=== PATIENT | male | born 2000 | race African-American/Black ===

== ENCOUNTER 2020-03-02 02:12 | Emergency (ER) | payer OTHER, SELFPAY ==
[2020-03-02] VITALS (8 sets, daily range): BP systolic 106–146; BP diastolic 51–92; PULSE 60–77; RESP 15–18; TEMP 36.4–37.1; O2SAT 98–100; BMI 26.9
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
[2020-03-02 03:22] LABS: Amphetamine Screen Urine Not Detected (Not Detect); Barbiturates, Urine Not Detected (Not Detect); Benzodiazepines Screen Urine Not Detected (Not Detect); Cannabinoid Screen Urine POSITIVE (Not Detect); Cocaine Screen Urine Not Detected (Not Detect); Opiate Screen Urine Not Detected (Not Detect); Phencyclidine Screen Urine Not Detected (Not Detect)
[2020-03-02 03:44] LABS: Basophils Absolute Auto 0.1 X10*3/uL (0.0-0.2); Basophils Percent Auto 0.6 % (0-2); Eosinophils Absolute Auto 0.1 X10*3/uL (0.0-0.4); Eosinophils Percent Auto 0.8 % (0-4); Hematocrit 42.9 % (42-52); Hemoglobin 13.6 g/dl (14.0-18.0); Imm Gran Abs Auto 0.05 X10*3/uL (0.00-0.03); Imm Gran Pct Auto 0.5 % (0.0-0.4); Lymphocytes Absolute Auto 3.5 X10*3/uL (1.2-4.9); Lymphocytes Percent Auto 33.9 % (20-40); MANUAL DIFF FLAG NO; Mean Corpuscular HGB Conc 31.7 g/dl (31.0-36.0); Mean Corpuscular Hemoglobin 22.6 pg (27.0-33.0); Mean Corpuscular Volume 71.4 fL (80-98); Mean Platelet Volume 11.1 fL (9.4-12.4); Monocytes Absolute Auto 0.6 X10*3/uL (0.1-1.2); Monocytes Percent Auto 5.6 % (2-11); Neutrophils Absolute Auto 6.1 X10*3/uL (2.0-8.3); Neutrophils Percent Auto 58.6 % (45-73); Platelet Count 179 X10*3/uL (160-400); Red Blood Count 6.01 X10*6/uL (4.60-5.80); Red Cell Distribution Width 14.7 % (11.0-16.0); White Blood Count 10.3 X10*3/uL (4.8-10.8)
[2020-03-02 03:50] LABS: INTERNATIONAL NORM RATIO 1.1 (0.9-1.1); Prothrombin Time 12.6 SEC (10.8-13.0)
[2020-03-02 03:52] LABS: Partial Thromboplastin Time 34.2 SEC (24.1-38.0)
[2020-03-02 04:14] LABS: Acetaminophen LAB < 1 mcg/mL (<30); Alanine Aminotransferase 13 U/L (0-40); Albumin Level 4.1 g/dL (3.5-5.0); Alkaline Phosphatase 67 U/L (39-117); Anion Gap 15 (12-20); Aspartate Amino Transferase 14 U/L (5-37); Bilirubin Direct 0.2 mg/dL (0.0-0.5); Bilirubin Total 0.3 mg/dL (0.0-1.0); Blood Urea Nitrogen 14 mg/dL (9-16); Calcium 9.3 mg/dL (8.4-10.2); Carbon Dioxide 24 mmol/L (22-29); Chloride 102 mmol/L (96-108); Creatinine Clr Calc Pharmacy 131.1; Estimated Glomerular Filt Rate > 60; Glucose Random 87 mg/dL (60-115); Lipase 13 U/L (8-78); Potassium 3.8 mmol/l (3.3-5.1); Salicylate < 5.0 mg/dL (15-30); Sodium 137 mmol/L (135-145)
--- NOTE | 2020-03-02 06:02 | PC.NURSE ---
Late entry: Poison control recommendation for activated charcoal if medication was ingested less than an hour ago, repeat tylenol and ASA levels at 4 hr reynold, BMP, MICHAUD, ETOH, and CBC.
--- NOTE | 2020-03-02 07:29 | PC.NURSE ---
PT A/O X 3 NO SOB/CHEMO NOTED SKIN PINK WARM DRY SPEAKS IN FULL SENTENCES. EATING BREAKFAST. AMB (I) GAIT STEADY TO BR AND BTB.
[2020-03-02 09:34] LABS: Acetaminophen LAB < 1 mcg/mL (<30)
--- NOTE | 2020-03-02 13:07 | PC.NURSE ---
this rn called [facility] at [phone]. this rn spoke with renan ([facility]). renan states that paperwork was received but they do not have anyone (staff) available at this time to see the pt. shell (mlp) and alex (rn) are aware. this rn per shell (mlp) reached out to claudia (care team) who will get back to us on their availability to see the pt today carol.
--- NOTE | 2020-03-02 13:11 | PC.NURSE ---
called [facility], told this rn they are unsure when a clinician would arrive to see pt
--- NOTE | 2020-03-02 13:33 | PC.NURSE ---
care team at bedside for eval.
== END 2020-03-02 13:47 | disposition home or self-care (01) ==
PROVIDERS: Nurse Practitioner Family; Emergency Provider Emergency Medicine; PCP Pediatrics
DX: T39.311A Poisoning by propionic acid derivatives, accidental (unintentional), initial encounter (principal); T39.314A Poisoning by propionic acid derivatives, undetermined, initial encounter; R45.851 Suicidal ideations; Y92.009 Unspecified place in unspecified non-institutional (private) residence as the place of occurrence of the external cause
CPT/HCPCS: 36415; 80048; 80076; 80307; 83690; 85025; 85610; 85730; 99285; G0480

== ENCOUNTER 2020-09-21 21:12 | Emergency (ER) | payer OTHER, SELFPAY ==
--- NOTE | ~2020-09-21 | XR_ITS ---
EXAMINATION: XR CHEST CLINICAL INFORMATION: Cough, shortness of breath COMPARISON: None TECHNIQUE: 2 views of the chest were obtained. FINDINGS: No significant abnormality is noted involving the heart, lungs, mediastinum, bony thorax or soft tissues. XR/XR chest 2V IMPRESSION: Unremarkable examination.
[2020-09-21 22:24] VITALS: BP 123/79; PULSE 99; RESP 20; TEMP 37.4; O2SAT 98; BMI 27.1
[2020-09-21 23:03] LABS: COVID-19 Test Negative (Negative)
[2020-09-21 23:37] VITALS: BP 131/54; PULSE 86; RESP 16; O2SAT 97
--- NOTE | 2020-09-21 23:59 | ED_ITS ---
HPI - URI/Sore Throat General Chief Complaint: Upper Respiratory Symptoms Stated Complaint: congestion Source: patient Mode of arrival: ambulatory Limitations: no limitations History of Present Illness HPI Narrative: Patient presents to ED for coughing, body aches, chills, and mild SOB for 1 week. Patient states for the past 2 weeks he has been in [place] started having symptoms this past week. elicited complaint: cough Related Data Previous Rx's Medication Instructions Recorded azithromycin See Rx Instructions .ROUTE 09/22/20 .COMPLEX #6 tab benzonatate [Tessalon Perles] 100 mg PO TID PRN #15 cap 09/22/20 Allergies Allergy/AdvReac Type Severity Reaction Status Date / Time pollen extracts Allergy Itchy Eyes Verified 03/02/20 02:37 Review of Systems Review of Systems: Yes all other systems are reviewed and are negative Constitutional: Constitutional: Reports as per HPI, Reports no additional constitutional complaints, Reports body ache(s) and Reports chills Eyes: Eyes: Reports as per HPI and Reports no additional eye complaints ENT: Reports system reviewed and no additional complaints, except as documented and Reports as per HPI Cardiovascular: Cardiovascular: Reports as per HPI, Reports no additional cardiovascular complaints, Denies chest pain and Reports dyspnea (Resolved) Respiratory: Respiratory: Reports as per HPI, Reports no additional respiratory complaints and Reports dyspnea (Resolved) Gastrointestinal: Gastrointestinal: Reports as per HPI and Reports no additional gastrointestinal complaints Musculoskeletal: Musculoskeletal: Reports no additional musculoskeletal complaints and Reports as per HPI Neurologic: Reports system reviewed and no additional complaints, except as documented and Reports as per HPI PMFSH Past Medical History Medical History No known health problems Family History Family History (Updated 03/02/20 @ 02:57 by Dash Mendoza DO) Other Family history non-contributory Social History Social History Substance Use Type: Marijuana Advance Directives: No Advance Directives Information Provided: No Physical Exam Vital Signs: Vital Signs: Last Vital Signs Temp 99.4 F 09/21/20 22:24 Pulse 86 09/22/20 00:02 Resp 16 09/21/20 23:37 BP 131/54 L 09/21/20 23:37 Pulse Ox 97 09/21/20 23:37 Body Mass Index 27.1 Const: General: cooperative, healthy appearing, comfortable, no acute distress, well developed, alert, awake and Physically active Orientation/consciousness: patient oriented x3 HENMT: Head: Yes normal to inspection, Yes No palpable skull fracture present, Yes normocephalic, Yes atraumatic and No abrasion Eyes: General: appearance normal, both eyes and all related structures Neck: Neck: Yes normal visual inspection, Yes full ROM, Yes no lymphadenopathy, Yes no meningeal signs, Yes trachea midline, Yes supple and No tender Chest: Chest palpation & inspection: normal inspection of the chest and normal palpation of entire chest wall Resp: Effort & Inspection: normal respiratory effort Auscultation: wheezes expiratory wheezes Cardio: Jugular venous distension: no JVD Heart sounds: S1 normal heart sound present and S2 normal heart sound present GI: Inspection: Yes normal to inspection and No abdominal wall ecchymosis Palpation (GI): Soft to palpation, not firm, nontender, no guarding and not rigid : General: No CVA tenderness and Yes no CVA tenderness Back/Spine/Pelvis: Back: no CVA tenderness, No CVA tenderness and No back tenderness Skin: General skin exam: no rashes or lesions noted and elasticity normal Neuro: General: patient oriented x3, no meningeal signs and CN's II-XI intact bilaterally Cranial nerves: Yes CN's II-XII intact bilaterally Extrem: General: Yes normal to inspection and Yes full ROM Psych: Appearance: grossly normal, well kempt and not disheveled Course Course Course Narrative: Patient are ANDREWS with chest x-ray and COVID swab. Reevaluation(s) Reevaluation #1: Chest x-ray negative for pneumonia. COVID swab negative. Patient's x-ray negatinve with wheezing and no history of asthma. Diagnosis bronchitis. Patient will be showed how to use albuterol puff inhaler by respiratory therapist Time: 00:08 MDM - URI/Sore Throat MDM Narrative Medical decision making narrative: Bronchitis Lab Data Labs: Lab Results 09/21/20 Range/Units 22:39 COVID-19 (NASIM) Negative (Negative) COVID-19 Clin Com See Note Discharge Plan Discharge Clinical Impression: Bronchitis Patient Disposition: Home, Self-Care Instructions: Acute Bronchitis (ED) Additional Instructions: Please use albuterol inhaler as instructed by respiratory therapist. Return to the ED immediately for any chest pain, shortness of breath, coughing up blood, intractable fever, weakness, chills, dizziness, calf swelling, leg swelling, coughing up blood, chest pain on inspiration, or any other concerning symptoms. Albuterol pump given to you by respiratory therapist used 4 times a day as needed 4 puffs Prescriptions: New azithromycin 500 mg tablet See Rx Instructions .ROUTE .COMPLEX Qty: 6 RF: 0 benzonatate [Tessalon Perles] 100 mg capsule 100 mg PO TID PRN (Reason: cough) Qty: 15 RF: 0 Referrals: Masoud Duarte MD [Primary Care Provider] - 2 days (Bronchitis. Chest x-ray normal. COVID swab negative) Stand Alone Forms: Work/School Release Interventions: ED Discharge Assessment Last Done: 09/22/20 00:27 Discharge Date/Time: 09/22/20 00:29 Print Language: Lithuanian
[2020-09-22] MEDS: Albuterol Sulfate 90 MCG 8 GM INHALER 4 PUFF INHALE (00:01)
[2020-09-22 00:02] VITALS: PULSE 86; O2SAT 97
== END 2020-09-22 00:29 | disposition home or self-care (01) ==
PROVIDERS: Emergency Provider Internal Medicine; PCP Pediatrics
DX: J20.9 Acute bronchitis, unspecified (principal); Z20.822 Contact with and (suspected) exposure to COVID-19; R50.9 Fever, unspecified; F12.90 Cannabis use, unspecified, uncomplicated
CPT/HCPCS: 36415; 71046; 87635; 94640; 94664; 99283; 99284

== ENCOUNTER 2021-10-09 04:24 | Emergency (ER) | payer OTHER, SELFPAY ==
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
[2021-10-09 04:49] VITALS: BP 112/81; PULSE 76; RESP 18; TEMP 36.9; O2SAT 99; BMI 30.7
[2021-10-09 04:55] VITALS: BP 112/81; PULSE 75; RESP 14; TEMP 36.9; O2SAT 98
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
[2021-10-09] MEDS: Ondansetron ODT 4 MG TAB.RAPDIS TRANSLINGU (06:10)
[2021-10-09] MEDS: Acetaminophen 325 MG TABLET 650 MG PO (06:10)
--- NOTE | 2021-10-09 06:18 | PC.NURSE ---
Pt given acetaminophen ad zofran per JUN. Pt reports his head is 10/10 pain and he is sensitive to light. Splint applied to the fourth finger on the right hand, along with instructions on reapplying the splint when needed. Pt and mother verbalize understanding.
== END 2021-10-09 06:43 | disposition home or self-care (01) ==
PROVIDERS: Emergency Provider Emergency Medicine
DX: S09.90XA Unspecified injury of head, initial encounter (principal); S00.83XA Contusion of other part of head, initial encounter; S62.664A Nondisplaced fracture of distal phalanx of right ring finger, initial encounter for closed fracture; Y04.2XXA Assault by strike against or bumped into by another person, initial encounter; Y93.89 Activity, other specified; Y92.511 Restaurant or cafe as the place of occurrence of the external cause; Y99.9 Unspecified external cause status
CPT/HCPCS: 29130; 70450; 73130; 99284

== ENCOUNTER 2021-10-29 05:03 | Emergency (ER) | payer OTHER, SELFPAY ==
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
[2021-10-29 05:09] VITALS: BP 160/90; PULSE 101; PULSE 110; RESP 14; O2SAT 97; BMI 30.7
[2021-10-29 05:16] VITALS: BP 136/75; PULSE 105; RESP 18; O2SAT 98
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
[2021-10-29 06:00] VITALS: BP 111/67; PULSE 106; O2SAT 96
== END 2021-10-29 06:18 ==
PROVIDERS: Emergency Provider Emergency Medicine
DX: S01.511A Laceration without foreign body of lip, initial encounter (principal); V47.5XXA Car driver injured in collision with fixed or stationary object in traffic accident, initial encounter; Y93.89 Activity, other specified; Y92.414 Local residential or business street as the place of occurrence of the external cause; Y99.9 Unspecified external cause status
CPT/HCPCS: 12011; 70450; 71045; 72125; 99284

== ENCOUNTER 2021-11-22 20:17 | Emergency (ER) | payer OTHER, SELFPAY ==
--- NOTE | 2021-11-22 20:46 | PC.NURSE ---
called x 3 to triage no answer.
== END 2021-11-22 21:11 | disposition left against medical advice (07) ==
LOC: HO.ED 21:07
PROVIDERS: Emergency Provider Emergency Medicine
DX: U07.1 COVID-19 (principal)

== ENCOUNTER 2022-07-28 13:15 | Emergency (ER) | payer OTHER, SELFPAY ==
--- NOTE | ~2022-07-28 | XR_ITS ---
EXAMINATION: XR RIBS, RIGHT CLINICAL INFORMATION: Right lower rib pain COMPARISON: 10/29/2021 TECHNIQUE: 3 views of the right ribs were obtained. PA view of the chest. FINDINGS: Lungs are clear. No consolidation, pneumothorax, or pleural effusion. The cardiomediastinal silhouette and pulmonary vasculature are normal. Osseous structures are unremarkable. Ribs are intact. No fractures are identified. XR/XR ribs RT min 3V w CXR1V IMPRESSION: Clear lungs. No focal rib abnormality.
--- NOTE | ~2022-07-28 | CT_ITS ---
EXAMINATION: CT ABDOMEN AND PELVIS WITH CONTRAST CLINICAL INFORMATION: Right-sided abdominal pain COMPARISON: None available. TECHNIQUE: Multidetector volumetric images were obtained from the superior aspect of the liver through the pubic symphysis following administration 85 mL of Omnipaque 350 intravenous contrast. Sagittal and coronal reformatted images were obtained on the technologist's workstation. Oral contrast: No This CT examination was performed using dose optimization techniques as appropriate, variously including the following: *Automated exposure control *Adjustment of mA and/or kV according to patient size (this includes techniques or standardized protocols for targeted exams where dose is matched to indication/reason for exam; i.e. extremities or head) *Use of iterative reconstruction technique DLP: 568 mGy-cm FINDINGS: LUNG BASES: The visualized lung bases are unremarkable. LIVER, GALLBLADDER, AND BILIARY TREE: The liver is normal in size, shape, and attenuation. No focal hepatic lesion or biliary ductal dilatation is present. The gallbladder is unremarkable with no evidence of radiopaque gallstones, gallbladder wall thickening, or obvious pericholecystic inflammatory changes. PANCREAS: Unremarkable. SPLEEN: Unremarkable. ADRENAL GLANDS: Unremarkable. KIDNEYS AND URETERS: The kidneys are normal in size, shape, and attenuation. No hydronephrosis, hydroureter, or calculi seen. No perinephric stranding. BLADDER: Unremarkable. GASTROINTESTINAL TRACT: The stomach is unremarkable. Normal caliber small bowel. No obstruction. No colonic wall thickening or inflammation. Normal appendix. No free air or free fluid. ABDOMINAL WALL: No significant hernia is appreciated. LYMPH NODES: Normal. VASCULAR: Unremarkable. PELVIC VISCERA: The prostate and seminal vesicles are unremarkable. OSSEOUS STRUCTURES: No acute or suspicious osseous abnormality. CT/CT abdomen pelvis w IV con IMPRESSION: No acute findings of the abdomen or pelvis. No inflammatory changes. Normal appendix. Fleischner guidelines were followed.
--- NOTE | ~2022-07-28 | US_ITS ---
EXAMINATION: US ABDOMEN LIMITED CLINICAL INFORMATION: Right upper quadrant pain. COMPARISON: None available. TECHNIQUE: Real-time imaging of the right upper quadrant abdominal viscera.: Doppler exam was used. FINDINGS: PANCREAS: Normal. LIVER: Normal. The liver is normal in size. The liver contour is normal. Parenchymal echogenicity is normal. No focal hepatic lesion. There is no intrahepatic biliary duct dilatation seen. GALLBLADDER: Normal. The gallbladder is physiologically distended without evidence of stones, sludge, polyps, wall thickening or pericholecystic fluid. COMMON BILE DUCT: Normal in caliber measuring 0.6 cm in diameter. RIGHT KIDNEY: Normal. No hydronephrosis. No renal calculi or focal parenchymal lesions. The kidney measures 9.2 cm in maximum dimension. FREE FLUID: None. US/US abdomen limited IMPRESSION: Normal ultrasound of the right upper quadrant.
[2022-07-28 13:19] VITALS: BP 121/68; PULSE 85; RESP 18; TEMP 36.6; O2SAT 99; BMI 28.0
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
[2022-07-28 13:31] LABS: MANUAL DIFF FLAG NO
[2022-07-28 13:38] LABS: Basophils Absolute Auto 0.1 X10*3/uL (0.0-0.2); Basophils Percent Auto 0.9 % (0-2); Eosinophils Absolute Auto 0.1 X10*3/uL (0.0-0.4); Eosinophils Percent Auto 1.4 % (0-4); Hematocrit 44.7 % (42.0-52.0); Hemoglobin 14.1 g/dl (14.0-18.0); Imm Gran Abs Auto 0.02 X10*3/uL (0.00-0.03); Imm Gran Pct Auto 0.2 % (0.0-0.4); Lymphocytes Absolute Auto 2.8 X10*3/uL (1.2-4.9); Lymphocytes Percent Auto 33.3 % (20-40); Mean Corpuscular HGB Conc 31.5 g/dl (31.0-36.0); Mean Corpuscular Hemoglobin 22.5 pg (27.0-33.0); Mean Corpuscular Volume 71.3 fL (80.0-98.0); Mean Platelet Volume 10.8 fL (9.4-12.4); Monocytes Absolute Auto 0.6 X10*3/uL (0.1-1.2); Neutrophils Absolute Auto 4.8 x10*3/uL (2.0-8.3); Neutrophils Percent Auto 57.2 % (45-73); Platelet Count 181 X10*3/uL (160-400); Red Blood Count 6.27 X10*6/uL (4.60-5.80); Red Cell Distribution Width 15.9 % (11.0-16.0); White Blood Count 8.4 X10*3/uL (4.8-10.8)
[2022-07-28 13:50] LABS: Alanine Aminotransferase 11 U/L (0-40); Albumin Level 4.3 g/dL (3.5-5.0); Alkaline Phosphatase 68 U/L (39-117); Anion Gap 11 (12-20); Aspartate Amino Transferase 15 U/L (5-37); Bilirubin Direct 0.3 mg/dL (0.0-0.5); Bilirubin Total 1.1 mg/dL (0.0-1.0); Blood Urea Nitrogen 8 mg/dL (9-16); Calcium 9.5 mg/dL (8.4-10.2); Carbon Dioxide 27 mmol/L (22-29); Chloride 106 mmol/L (96-108); Creatinine Clr Calc Pharmacy 125.2; Estimated Glomerular Filt Rate > 60; Glucose Random 113 mg/dL (60-115); Lipase 8 U/L (8-78); Magnesium 1.7 mg/dL (1.6-2.6); Potassium 4.3 mmol/L (3.3-5.1); Sodium 140 mmol/L (135-145); Total Protein 6.8 g/dL (6.5-8.0)
--- NOTE | 2022-07-28 14:59 | ED.ABDPAIN ---
HPI - Abdominal Pain General Chief Complaint: Abdominal Pain Stated Complaint: lung issues/ R side abd pain Time Seen by Provider: 07/28/22 14:48 History of Present Illness HPI narrative: Patient is a 21-year-old male complaining of right flank right lower rib pain. The pain is been ongoing for about a week. It is not made worse with deep inspiration. It is sharp. It is not associated with urination. Patient denies any history of kidney stones. Denies any trauma to the area. No coughing no congestion or upper respiratory symptoms. No history of diabetes, hypertension, high cholesterol, smoking, mi. no fever no chills. No diaphoresis. No shortness of breath. No difficulty urinating. No pain on bowel movement. No change in appetite. Related Data Previous Rx's Medication Instructions Recorded azithromycin 500 mg tablet See Rx Instructions PO .COMPLEX #6 09/22/20 tabs benzonatate 100 mg capsule 100 mg PO TID PRN cough #15 caps 09/22/20 (Bud Pearce) cyclobenzaprine 10 mg tablet 10 mg PO TID PRN muscle spasm #14 10/09/21 tabs ibuprofen 600 mg tablet 600 mg PO Q6H PRN pain #30 tabs 10/09/21 ondansetron 4 mg disintegrating 4 mg PO Q8H PRN nausea and 10/09/21 tablet vomiting #20 tabs Allergies Allergy/AdvReac Type Severity Reaction Status Date / Time pollen extracts Allergy Itchy Eyes Verified 07/28/22 13:19 Review of Systems Review of Systems Positive pain to the right flank area Yes all other systems are reviewed and are negative PMFSH Past Medical History Attestation statement: The following information was validated with the patient. Medical History No known health problems Family History Family History Other Family history non-contributory Social History Social History Alcohol intake: current Alcohol intake frequency: a few times a week Patient Tobacco Use Status: Never used Tobacco Substance Use Type: Marijuana Advance Directives: No Physical Exam ED Vital Signs: Vital Signs - 24 hr 07/28/22 13:19 Temperature 97.8 F Pulse Rate 85 Respiratory Rate 18 Blood Pressure 121/68 Pulse Oximetry 99 Oxygen Delivery Method Room Air BMI result Body Mass Index 28.0 Appearance: Alert. Oriented X3. No acute distress. Eyes: Pupils equal, round and reactive to light. ENT: Pharynx normal. Neck: Normal inspection. Neck supple. No lymph nodes noted. No crepitus CVS: Normal heart rate and rhythm. Pulses normal. Normal S1 and S2 Respiratory: No respiratory distress. Breath sounds normal. No Wheezing. No rales Abdomen: Soft and nontender. No rigidity. No distention. good BS x4 Skin: Skin warm and dry. Normal skin color. Normal skin turgor. Extremities: No lower extremity edema. Neurovascular intact to all extremities. No Lacerations. No Rash Neuro: Oriented X 3. No motor deficit. No sensory deficit. Moving all extermities. No slurred speech Medical Decision Making Medical Decision Making [facility] Narrative: Patient complaining of pain in the right flank area. Right lower chest area. D-dimer was negative. There is no evidence for PE history not consistent with PE. Patient rib x-ray showed no evidence of pneumonia no pneumothorax no rib fracture. Patient continued to have pain a CT of the abdomen pelvis was done. There is no evidence of kidney stone but has no evidence for appendicitis there is no evidence for obstruction, abscess, mass. More likely patient's symptoms musculoskeletal. Will discharge patient home. Ultrasound of the upper quadrant showed no evidence of gallbladder issues. Patient's liver enzymes are normal. White count is normal 8.4. Patient's lipase is normal no evidence of pancreatitis Lab Data [facility] Lab Attestation statement: I reviewed the patient's lab results. 07/28/22 13:28 07/28/22 13:28 Labs: Lab Results 07/28/22 07/28/22 07/28/22 Range/Units 13:28 13:28 15:42 WBC 8.4 (4.8-10.8) X10*3/uL RBC 6.27 H (4.60-5.80) X10*6/uL Hgb 14.1 (14.0-18.0) g/dl Hct 44.7 (42.0-52.0) % MCV 71.3 L (80.0-98.0) fL MCH 22.5 L (27.0-33.0) pg MCHC 31.5 (31.0-36.0) g/dl RDW 15.9 (11.0-16.0) % Plt Count 181 (160-400) X10*3/uL MPV 10.8 (9.4-12.4) fL Immature Gran % (Auto) 0.2 (0.0-0.4) % Neut % (Auto) 57.2 (45-73) % Lymph % (Auto) 33.3 (20-40) % Lamar % (Auto) 7.0 (2-11) % Eos % (Auto) 1.4 (0-4) % Baso % (Auto) 0.9 (0-2) % Lymph # (Auto) 2.8 (1.2-4.9) X10*3/uL Lamar # (Auto) 0.6 (0.1-1.2) X10*3/uL Eos # (Auto) 0.1 (0.0-0.4) X10*3/uL Baso # (Auto) 0.1 (0.0-0.2) X10*3/uL Abs Immat Gran (auto) 0.02 (0.00-0.03) X10*3/uL Absolute Neuts (auto) 4.8 (2.0-8.3) x10*3/uL Absolute Nucleated RBC 0.000 (0.0-0.012) X10*3/uL Nucleated RBC % (auto) 0.0 (0.0-0.2) /100WBC D-Dimer High Sensitivty < 150 NG/ML Sodium 140 (135-145) mmol/L Potassium 4.3 (3.3-5.1) mmol/L Chloride 106 (96-108) mmol/L Carbon Dioxide 27 (22-29) mmol/L Anion Gap 11 L (12-20) BUN 8 L (9-16) mg/dL Creatinine 1.06 (0.5-1.4) mg/dL Estim Creat Clear Calc 125.2 Estimated GFR > 60 Random Glucose 113 (60-115) mg/dL Calcium 9.5 (8.4-10.2) mg/dL Magnesium 1.7 (1.6-2.6) mg/dL Total Bilirubin 1.1 H (0.0-1.0) mg/dL Direct Bilirubin 0.3 (0.0-0.5) mg/dL AST 15 (5-37) U/L ALT 11 (0-40) U/L Alkaline Phosphatase 68 (39-117) U/L Total Protein 6.8 (6.5-8.0) g/dL Albumin 4.3 (3.5-5.0) g/dL Lipase 8 (8-78) U/L Radiology Impression Discussion of test interpretation with radiology: I have reviewed the radiologist's reading. Radiologist Impression: CT scan of the abdomen pelvis were negative rib x-rays are negative. Medications Administered Discontinued Medications Generic Name Dose Route Start Last Admin Trade Name Freq PRN Reason Stop Dose Admin Iohexol 85 ml 07/28/22 16:11 07/28/22 16:12 Iohexol 350 Mg/Ml 100 Ml Infus..Btl IV 07/28/22 16:12 85 ml ONCE ONE Administration Discharge Plan Discharge Clinical Impression: Acute flank pain Patient Disposition: Home, Self-Care Instructions: Flank Pain (ED) Prescriptions: No Action azithromycin 500 mg tablet See Rx Instructions .ROUTE .COMPLEX Qty: 6 0RF Rx Instructions: take 500 mg today (day 1), then 250 mg for 4 days (days 2-5) benzonatate [Tessalon Perles] 100 mg capsule 100 mg PO TID PRN (Reason: cough) Qty: 15 0RF cyclobenzaprine 10 mg tablet 10 mg PO TID PRN (Reason: muscle spasm) Qty: 14 0RF ibuprofen 600 mg tablet 600 mg PO Q6H PRN (Reason: pain) Qty: 30 0RF ondansetron 4 mg tablet,disintegrating 4 mg PO Q8H PRN (Reason: nausea and vomiting) Qty: 20 0RF Referrals: Physician,None [Primary Care Provider] - 08/01/22
[2022-07-28 15:59] LABS: D Dimer High Sensitivity < 150 NG/ML
[2022-07-28] MEDS: iohexoL 350 MG/ML 100 ML INFUS..BTL 85 ML IV (16:12)
== END 2022-07-28 17:55 | disposition home or self-care (01) ==
PROVIDERS: Physician Assistant; Emergency Provider Emergency Medicine Emergency Medical Services
DX: R10.9 Unspecified abdominal pain (principal); R07.81 Pleurodynia; F12.90 Cannabis use, unspecified, uncomplicated
CPT/HCPCS: 36415; 71101; 74177; 76705; 80048; 80076; 83690; 83735; 85025; 85379; 99282; 99283; 99284; Q9967